=== PATIENT | female | born 1995 | race Caucasian/White ===

== ENCOUNTER 2018-07-02 23:18 | Emergency (ER) | payer MEDICAID ==
[~2018-07-02] VITALS: Ht 157.5 cm; Wt 49.9 kg
[2018-07-02 23:22] VITALS: BP 127/80
--- NOTE | 2018-07-02 23:23 | NUR ---
PT PRESENTS TO ED FOR CHECKUP BY PHYSICIAN; PT STATES SHE THINKS SHE HAS AN INSECT IN HER RIGHT EAR. DR BUI AT BEDSIDE FOR EVALUAION. DR BUI STATES NO INSECT. EAR CANAL INTACT, NO REDNESS, TYMPANIC MEMBRANE CONCAVE AND CLEAR. VSS. PT STATES HX OF INSECT IN EAR AND WANTED CHECK UP. CONTINUE TO MONITOR.
--- NOTE | 2018-07-02 23:23 | NUR ---
TO BED #5 AMBULATORY, REPORT GIVEN TO KIRTI WEST
[2018-07-02 23:36] VITALS: BP 127/80
--- NOTE | 2018-07-02 23:36 | NUR ---
Patient discharged with v/s stable. Written and verbal after care instructions given and explained. Patient verbalized understanding. Ambulatory with steady gait. All questions addressed prior to discharge. Advised to follow up with PMD.
== END 2018-07-02 23:36 | disposition home or self-care (01) ==
LOC: MED 23:18
DX: H92.01 Otalgia, right ear (principal)
CPT/HCPCS: 99281

== ENCOUNTER 2021-08-01 05:15 | Emergency (ER) | payer MEDICAID ==
[~2021-08-01] VITALS: Ht 157.5 cm; Wt 49.9 kg
[2021-08-01 05:24] VITALS: BP 120/83
--- NOTE | 2021-08-01 05:24 | NUR ---
TO TENT AMBULATORY
--- NOTE | 2021-08-01 05:34 | NUR ---
Dr. Christian examining patient.
[2021-08-01 05:40] VITALS: BP 120/83
--- NOTE | 2021-08-01 05:40 | NUR ---
SEEN AND DISCHARGED BY DAWSON COVINGTON.
== END 2021-08-01 05:40 | disposition home or self-care (01) ==
LOC: MED 05:15
DX: J06.9 Acute upper respiratory infection, unspecified (principal)
CPT/HCPCS: 99281

== ENCOUNTER 2021-10-07 07:58 | Emergency (ER) | payer MEDICAID ==
[~2021-10-07] VITALS: Ht 160 cm; Wt 48.1 kg
--- NOTE | 2021-10-07 08:05 | NUR ---
PT AMBUALTED TO RESTROOM
[2021-10-07 08:06] VITALS: BP 147/93
--- NOTE | 2021-10-07 08:27 | NUR ---
pt provided with warm blanket
--- NOTE | 2021-10-07 08:27 | NUR ---
12 weeks c/o discharge with bleeding began this morning. Pt stated she experinced minor bleeding this AM, and denies any bleeding before today. Pt also stated she has had some discomfort in her vaginal region, but denies any discomfort anywhere else. Also states nausea, vomiting/diarrhea x 1 episode today, but stated she has had morning sickness. Low back pain x 1 week. G2 T1 L1. PMH/Sx/Meds: Denies NKDA
--- NOTE | 2021-10-07 08:30 | NUR ---
DR. KRAFT BEDSIDE EVALUATING PT
--- NOTE | 2021-10-07 09:23 | NUR ---
LAB AT PATIENT BEDSIDE
--- NOTE | 2021-10-07 09:54 | NUR ---
pt ambulated to restroom, gait steady
--- NOTE | 2021-10-07 10:11 | NUR ---
US TECH BEDSIDE WITH PATIENT
--- NOTE | 2021-10-07 10:45 | NUR ---
Patient appears to be resting comfortably in bed. Vital Signs within normal limits. Respirations even and unlabored. PT CURRENTLY SLEEPING BEDSIDE
--- NOTE | 2021-10-07 11:04 | NUR ---
DR. KRAFT BEDSIDE PROVIDING PT WITH UPDATE
[2021-10-07 11:17] VITALS: BP 131/69
== END 2021-10-07 11:17 | disposition home or self-care (01) ==
LOC: MED 07:58
DX: O20.0 Threatened abortion (principal); Z3A.12 12 weeks gestation of pregnancy
CPT/HCPCS: 36415; 76817; 81002; 81025; 84702; 86900; 86901; 99284; Q0092

== ENCOUNTER 2023-05-18 09:54 | Emergency (ER) | payer MEDICAID ==
[~2023-05-18] VITALS: Ht 157.5 cm; Wt 53.1 kg
[2023-05-18 10:04] VITALS: BP 139/86; PULSE 88; RESP 20; TEMP 98; O2SAT 98
--- NOTE | 2023-05-18 10:36 | NUR ---
28YO F PRESENTS W/CP SINCE LAST NIGHT, THIS AM PAIN RADIATING TO LT ARM. PT DENIES SOB, INJURY, N, V, D, FEVER, CHILLS, FLU SYMPTOMS, DIZZINESS, MARTIN. DENIES CARDIAC FAMILY HX. NAD NOTED, SAFETY MAINTAINED. CALL LIGHT IN REACH. HX: DENIES NKA
[2023-05-18] MEDS ORDERED: IBUPROFEN 400 MG TAB PO ONE (10:40)
[2023-05-18] MEDS ORDERED: ACETAMINOPHEN EXTRA STRENGTH 500 MG TAB PO ONE (10:40)
[2023-05-18 11:02] LABS: BASOPHILS % (AUTO) 0.4 % (0.0-2.0); EOSINOPHILS # (AUTO) 0.1 K/uL (0-0.4); HEMATOCRIT 39.2 % (36-48); HEMOGLOBIN 12.9 g/dL (12.0-16.0); LYMPHOCYTES # (AUTO) 1.4 K/uL (2.5-16.5); LYMPHOCYTES % (AUTO) 29.7 % (20.5-51.1); MEAN CORPUSCULAR HEMOGLOBIN 27 pg (27-31); MEAN CORPUSCULAR HGB CONC 33 g/dL (33-37); MEAN CORPUSCULAR VOLUME 82.6 fL (80-94); MONOCYTES # (AUTO) 0.3 K/uL (0.8-1.0); MONOCYTES % (AUTO) 5.5 % (1.7-9.3); NEUTROPHILS % (AUTO) 62.4 % (42.2-75.2); PLATELET COUNT (AUTO) 201 K/uL (140-450); RED BLOOD CELL COUNT(AUTO) 4.75 MIL/uL (4.20-5.40); RED CELL DISTRIBUTION WIDTH 15.4 % (11.6-13.7); WHITE BLOOD COUNT (AUTO) 4.8 K/uL (4.8-10.8)
[2023-05-18 11:12] LABS: APPEARANCE,URINE CLEAR (CLEAR); BILIRUBIN,URINE NEGATIVE (NEGATIVE); BLOOD, URINE NEGATIVE (NEGATIVE); COLOR,URINE YELLOW (YELLOW); LEUKOCYTE ESTERASE ,URINE NEGATIVE (NEGATIVE); NITRITE, URINE NEGATIVE (NEGATIVE); UGLUCOSE NEGATIVE (NEGATIVE)
[2023-05-18 11:17] LABS: ALBUMIN 3.8 g/dL (3.4-5.0); ANION GAP 10.5 (8-16); CARBON DIOXIDE 28.2 mmol/L (21-32); CREATININE 0.7 mg/dL (0.6-1.3); POTASSIUM 3.7 mmol/L (3.5-5.1); TOTAL BILIRUBIN 0.3 mg/dL (0.0-1.0)
--- NOTE | 2023-05-18 11:33 | NUR ---
PT SITTING UPRIGHT IN COMFORTABLE POSITION, ON HER PHONE, VS STABLE, ON COUNTER WEIGHER, SAFETY MAINTAINED, CALL LIGHT IN REACH.
--- NOTE | 2023-05-18 12:20 | NUR ---
1st contact with pt. A/O x4, no acute distress. NO SOB, denies any chest pain. Pt. to be d/c shortly by ./
[2023-05-18] MEDS ORDERED: IBUP-1842 PO (12:28)
[2023-05-18] MEDS ORDERED: ACET-10509 PO (12:28)
[2023-05-18 13:06] VITALS: BP 111/68; PULSE 89; RESP 16; O2SAT 98
== END 2023-05-18 13:06 | disposition home or self-care (01) ==
LOC: MED 09:54
DX: R07.89 Other chest pain (principal); M79.602 Pain in left arm; Z79.899 Other long term (current) drug therapy
CPT/HCPCS: 36415; 71045; 80053; 81003; 81025; 83690; 85025; 85379; 93005; 99285

== ENCOUNTER 2023-08-01 00:28 | Emergency (ER) | payer MEDICAID ==
[~2023-08-01 00:28] MED LIST: ACET-10509 PO; IBUP-1842 PO
== END 2023-08-01 01:46 | disposition left against medical advice (07) ==
LOC: MED 00:28
DX: K08.89 Other specified disorders of teeth and supporting structures (principal); Z53.21 Procedure and treatment not carried out due to patient leaving prior to being seen by health care provider